=== PATIENT | male | born 1985 | race Caucasian/White ===

== ENCOUNTER → 2021-11-22 | Outpatient (CLI) | payer OTHER ==
[~2021-11-22] MED LIST: CYCL10 PO; IBUP600 PO; METPRE4DP PO
== END | disposition home or self-care (01) ==
LOC: LAB SHORT 13:04 → PLD 13:04 → LAB 13:04
DX: L82.1 Other seborrheic keratosis (principal)
CPT/HCPCS: 88305

== ENCOUNTER → 2023-07-04 | Outpatient (CLI) | payer SELFPAY ==
[2023-07-06 21:39] LABS: APTIMA MEDIA TYPE Unisex Swab; C. TRACHOMATIS BY TMA Negative (Negative); N. GONORRHOEAE BY TMA Negative (Negative); SPECIMEN SOURCE Urethra
== END ==
LOC: LAB 14:15 → LAB SHORT 14:15
PROVIDERS: Physician Assistant
DX: Z20.2 Contact with and (suspected) exposure to infections with a predominantly sexual mode of transmission (principal)
CPT/HCPCS: 87070; 87205; 87491; 87591

== ENCOUNTER 2023-12-20 17:10 | Emergency (ER) | payer OTHER ==
[~2023-12-20] VITALS: Ht 177.8 cm; Wt 65.8 kg
[2023-12-20 17:21] VITALS: BP 147/75
[2023-12-20] MEDS ORDERED: HYDR1TAB94 PO (17:26)
[2023-12-20] MEDS ORDERED: ONDA4ODT MM (17:26)
[2023-12-20] MEDS ORDERED: AMOCLA875 PO (17:26)
== END 2023-12-20 17:28 | disposition home or self-care (01) ==
LOC: ER 17:10
DX: K04.7 Periapical abscess without sinus (principal); F17.200 Nicotine dependence, unspecified, uncomplicated
CPT/HCPCS: 99282